=== PATIENT | female | born 1950 | race Caucasian/White ===

== ENCOUNTER 2021-12-26 09:45 | Day surgery (SDC) | payer MEDICARE ==
[2021-12-26] MEDS ORDERED: Sodium Bicarbonate 2.5 MEQ/5 ML VIAL ONE (10:35)
[2021-12-26] MEDS ORDERED: Lidocaine 1% PF 5 ML VIAL ONE (10:35)
[2021-12-26 13:24] VITALS: BP 133/60; TEMP 98.6
== END 2021-12-26 10:53 | disposition home or self-care (01) ==
LOC: CSHULT 09:45
PROVIDERS: ATTEND Nurse Practitioner Acute Care
PROC: 0W9G3ZZ Drainage of Peritoneal Cavity, Percutaneous Approach (ICD-10-PCS; principal; 2021-12-26)
DX: C48.8 Malignant neoplasm of overlapping sites of retroperitoneum and peritoneum (principal); R18.0 Malignant ascites; Z88.2 Allergy status to sulfonamides
CPT/HCPCS: 49083